=== PATIENT | male | born 1940 | race Caucasian/White ===

== ENCOUNTER 2018-06-13 13:50 | Day surgery (SDC) | payer OTHER ==
[2018-06-13] MEDS ORDERED: Iodixanol 320 MG/ML 100 ML BOTTLE IV ONE (14:27)
[2018-06-13] MEDS ORDERED: Iohexol 350mgl/ml 50 ML ONE (14:27)
[2018-06-13] MEDS ORDERED: Lidocaine 2% PF (10 ml) Amp ONE (14:27)
[2018-06-13] MEDS ORDERED: Phenylephrine 10 mg/ml Inj ONE (14:28)
[2018-06-13] MEDS ORDERED: Iodixanol 320 MG/ML 200 ML BOTTLE IV ONE (14:28)
[2018-06-13] MEDS ORDERED: Nitroglycerin 50mg in D5W 50 MG/250 ML BOTTLE IV ONE (14:30)
[2018-06-13] MEDS ORDERED: Midazolam 2 MG/2 ML VIAL ONE (14:49)
[2018-06-13] MEDS ORDERED: Sodium Chloride 0.9% 1,000 ML IV SCH (16:30)
[2018-06-13 16:59] VITALS: TEMP 98.5
[2018-06-13 18:58] VITALS: PULSE 63
[2018-06-13 22:59] VITALS: BP 128/63; RESP 15; O2SAT 96
--- NOTE | 2018-06-14 07:33 | CARDCATH ---
PROCEDURE DATE: 06/13/2018 CARDIAC ANGIOPLASTY STENTING REPORT BRIEF CLINICAL HISTORY: This is a patient, who is a 77-year-old male with history of STEMI, status post successful angioplasty and stenting of the RCA. He was transferred from the [facility] for the elective stage B angioplasty and stenting of the circumflex. PROCEDURE TECHNIQUE: After obtaining the consent, the patient was prepared for the procedure. Left groin was used for access and after obtaining the access, 6-[place]cuadorean sheath was introduced into the left femoral artery and access was completed without any complication. A 6-Ecuadorean 3.5 XB guide catheter was used for the procedure. After engaging the guide catheter, wire was passed into the lesion and the mid circumflex about 80% to 90% long lesion was then dilated with 2.5 x 20 balloon. After initial dilation, 3.2 x 26 drug-eluting stent was deployed in the mid and proximal portion of the vessel. Stent was dilated up to pressure of 14 for 30 seconds. Post procedure, there was 0% residual stenosis. Multiple pictures were taken to assess the adequate deployment of the stent. Patient will be monitored. Because of the side branch, no closure device was used. Patient will be transferred to CCU, where he will be monitored and when , adequate sheaths will be removed. Later on,if there are no issues, patient will be transferred to [facility]. We are able to follow and patient will be continued on his dual antiplatelet therapy, lipid lowering agents, beta-blockers, CHERELLE inhibitors. Teresa Maradiaga MD
== END 2018-06-13 22:39 | disposition short-term general hospital (02) ==
LOC: CATH 13:50 → MERGE 13:50 → ICU 15:50 → CATH 22:39
PROVIDERS: ATTEND Internal Medicine
DX: I21.3 ST elevation (STEMI) myocardial infarction of unspecified site (principal); Z95.5 Presence of coronary angioplasty implant and graft
CPT/HCPCS: 82948; 85175; 93454; 99152; 99153; C1725; C1769 ×2; C1874; C1887; C2629; C9600; J1644 ×2; J2250; J2405; J3010; J7030; Q9966; Q9967